=== PATIENT | male | born 1995 | race Caucasian/White ===

== ENCOUNTER 2019-07-25 21:36 | Emergency (ER) | payer SELFPAY ==
[2019-07-25] MEDS ORDERED: IV NORMAL SALINE 1,000ML 1,000 ML IV ONE (22:15)
--- NOTE | 2019-07-25 22:21 | EKG ---
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
--- NOTE | 2019-07-25 22:21 | PHYS DOC ---
Adult General Chief Complaint Chief Complaint: FLANK PAIN HPI HPI Patient is a 23 YO M WITH CC OF B/L LOW BACK PAIN CHEST PAIN FEELS LIKE "SWOLLEN" INTRMITTENT VOMITING MYALGIAS ALL OVER. NO FEVER WENT TO [facility], APPPARENTLY WAS TOLD HE HAD HEAD STROKE OR KIDNEY FAILURE, GOT HYDRATED AND APPARENTLY GOT HALDOL POSSIBLY FOR CANNABIS HYPEREMESIS ? SYNDROME, SAYS THE VOMITING IS BETTER AFTER A HOT BATH. I AM WAIITN FOR RECORDS OF THIS TIME, FAX'D THE PAPERS OVER TO [facility]. PT SAYS HE DRANK TEN GLASSES OF WATER AND BARELY PEED AT ALL ALL DAY IN THE ER THE PATIENT IS ABLE TO MAKE URINE. ALSO THERE IS SOME ISSUES WITH THE CHILD AND THE COURT SYSTEM, PT UNDER STRES. Review of Systems Review of Systems Constitutional: Denies fever or chills [] Eyes: Denies change in visual acuity, redness, or eye pain [] HENT: Denies nasal congestion or sore throat [] Respiratory: Denies cough or shortness of breath [] All other systems were reviewed and found to be within normal limits, except as documented in this note. Current Medications Current Medications Current Medications Medications (Trade) Dose Ordered Sig/Rupesh Start Time Stop Time Status Last Admin Dose Admin Sodium Chloride 1,000 ml @ 1,000 mls/hr 1X ONCE 07/25/19 22:15 07/25/19 23:14 UNV 07/25/19 22:18 1,000 MLS/HR Allergies Allergies Allergies Coded Allergies Type Severity Reaction Last Updated Verified haloperidol Allergy Unknown 07/25/19 Yes Physical Exam Physical Exam Constitutional: Well developed, well nourished, no acute distress, non-toxic appearance. [] HENT: Normocephalic, atraumatic, bilateral external ears normal, oropharynx moist, no oral exudates, nose normal. [] Eyes: PERRLA, EOMI, conjunctiva normal, no discharge. [] Neck: Normal range of motion, no tenderness, supple, no stridor. [] Cardiovascular:Heart rate regular rhythm, no murmur [] Lungs & Thorax: Bilateral breath sounds clear to auscultation [] Abdomen: Bowel sounds normal, soft, no tenderness, no masses, no pulsatile masses. [] Skin: Warm, dry, no erythema, no rash. [] Back: No tenderness, no CVA tenderness. [] Extremities: No tenderness, no cyanosis, no clubbing, ROM intact, no edema. [] Neurologic: Alert and oriented X 3, normal motor function, normal sensory function, no focal deficits noted. [] Psychologic: Affect normal, judgement normal, mood normal. [] EKG EKG nsr rate 67 no acute ischemic chagnes noted. given age liekly normal[] Radiology/Procedures Radiology/Procedures [] Impressions: CXR NEG ACUTE MY READ Course & Med Decision Making Course & Med Decision Making Pertinent Labs and Imaging studies reviewed. (See chart for details) []23-year-old male with multiple nonspecific symptoms back pain myalgias chest pressure feels like the chest is swollen intermittent vomiting vitals are reassuring EKG normal chest x-ray negative labs look good cannabis in system. Perhaps there is a component of some symptoms related to that recommended hydration exercise abstain from cannabis follow-up precautions reviewed. There is no evidence of kidney failure at this time Dragon Disclaimer Dragon Disclaimer This electronic medical record was generated, in whole or in part, using a voice recognition dictation system. Departure Departure: Impression: Primary Impression: Myalgia Disposition: HOME, SELF-CARE Condition: STABLE Referrals: PCP,NO (PCP) NOE BANDA MD Jul 25, 2019 22:21
[2019-07-25 22:28] LABS: BASO # 0.1 x10^3/uL (0.0-0.2); BASO % 1 % (0-3); EOS # 0.1 x10^3/uL (0.0-0.7); EOS % 1 % (0-3); HEMATOCRIT 48.1 % (39.0-53.0); HEMOGLOBIN 16.7 g/dL (13.0-17.5); LYMPH % 24 % (24-48); MEAN CORPUSCULAR HEMOGLOBIN 31 pg (25-35); MEAN CORPUSCULAR HGB CONC 35 g/dL (31-37); MEAN CORPUSCULAR VOLUME 89 fL (79-100); MONO % 12 % (0-9); NEUT # 4.9 x10^3uL (1.8-7.7); NEUT % 62 % (31-73); PLATELET COUNT 277 x10^3/uL (140-400); RED BLOOD COUNT 5.38 x10^6/uL (4.30-5.70); RED CELL DISTRIBUTION WIDTH 12.3 % (11.5-14.5)
[2019-07-25 22:45] LABS: ALBUMIN 5.1 g/dL (3.4-5.0); ALBUMIN/GLOBULIN RATIO 1.7 (1.0-1.7); CALCIUM 10.2 mg/dL (8.5-10.1); GFR 93.4; POTASSIUM 3.1 mmol/L (3.5-5.1); TOTAL BILIRUBIN 1.1 mg/dL (0.2-1.0); TOTAL PROTEIN 8.1 g/dL (6.4-8.2)
[2019-07-25 23:38] LABS: AMPHETAMINE/METHAMPHETAMINE NEG (NEG); BARBITURATES NEG (NEG); BENZODIAZEPINES NEG (NEG); CANNABINOIDS POS (NEG); COCAINE NEG (NEG); METHADONE NEG (NEG); OPIATES NEG (NEG); PHENCYCLIDINE NEG (NEG)
[2019-07-25 23:42] LABS: AMORPHOUS SEDIMENT,UR PRESENT /HPF; BACTERIA,URINE 0 /HPF (0-FEW); BILIRUBIN,URINE NEG (NEG); CLARITY,URINE HAZY; COLOR,URINE YELLOW; GLUCOSE,URINE NEG (NEG); HYALINE CASTS, URINE OCC /HPF; NITRITE,URINE NEG (NEG); RBC,URINE 0 /HPF (0-2); SQUAMOUS EPITHELIAL CELL,UR OCC /LPF; UROBILINOGEN,URINE 0.2 mg/dL (0.2 mg/dL)
[2019-07-25 23:50] VITALS: BP 121/75
--- NOTE | 2019-07-25 23:57 | RAD ---
CHEST AP ONLY INDICATION: Chest pain. COMPARISON STUDY: None. FINDINGS: Lungs: Normal lung volume. No pulmonary mass or consolidation. The tracheobronchial tree and hilar structures are normal. Pleura: No pleural effusion or pneumothorax. Heart and Mediastinum: The cardiomediastinal silhouette is normal. The great vessels of the thorax are normal. Bones and Soft Tissues: The bones and soft tissues are within normal limits. IMPRESSION: No acute cardiopulmonary process. Electronically signed by: Pola Khan MD (07/25/2019 11:54 PM) [facility]
== END 2019-07-26 00:09 | disposition home or self-care (01) ==
LOC: ER 21:36
DX: M79.10 Myalgia, unspecified site (principal); R11.11 Vomiting without nausea; M54.5 Low back pain; R07.89 Other chest pain; Z88.8 Allergy status to other drugs, medicaments and biological substances
CPT/HCPCS: 36415; 71045; 80053; 80307; 81001; 82550; 83690; 84484; 85025; 93005; 96360; 99285; G0480; J7030